=== PATIENT | female | born 1940 | race Caucasian/White ===

== ENCOUNTER 2018-09-27 11:59 | Emergency (ER) | payer MEDICARE ==
[~2018-09-27] VITALS: Ht 162.6 cm; Wt 66.7 kg
[~2018-09-27 11:59] MED LIST: AMLO5TAB4 PO; APIX5TAB PO; ASPI-989 PO; LISI-600 PO; METO50TA7 PO; NITR1PAT76 TD
[2018-09-27 12:00] VITALS: BP_SYST 162
--- NOTE | 2018-09-27 12:00 | NUR ---
BROUGHT BACK TO BED #3 AND TRIAGED, REPORT GIVEN TO MARSHAL
--- NOTE | 2018-09-27 12:05 | NUR ---
ER Dr. Hamilton at bedside examining patient.
--- NOTE | 2018-09-27 12:06 | NUR ---
Pt c/o 01/27 chest pain that radiates to back, started 4 days ago and "feels like a truck" is on her chest. Pt states she also has reflux and took 81 mg of aspirin this morning. No other complaints or injuries per pt or noted.
--- NOTE | 2018-09-27 12:10 | NUR ---
# 18 gauge angiocath placed to left AC. Use of asceptic technique. Opsite placed over site. Blood return noted. Blood for lab drawn from site. Flushed with 10 cc of normal saline. No evidence of infiltration noted. Patient tolerated well.
[2018-09-27] MEDS: ASPIRIN 81 MG TAB.CHEW PO ONE (12:25)
[2018-09-27 12:29] LABS: BASOPHILS # (AUTO) 0.1 K/uL (0.0-0.2); BASOPHILS % (AUTO) 1.2 % (0.0-2.0); EOSINOPHILS # (AUTO) 0.3 K/uL (0.0-0.4); EOSINOPHILS % (AUTO) 3.8 % (0.0-4.0); HEMATOCRIT 38.6 % (36-48); HEMOGLOBIN 12.9 g/dL (12.0-16.0); LYMPHOCYTES # (AUTO) 2.1 K/uL (1.0-5.5); MEAN CORPUSCULAR HEMOGLOBIN 29 pg (27-31); MEAN CORPUSCULAR HGB CONC 34 % (32-36); MEAN CORPUSCULAR VOLUME 87 fL (79.0-98.0); MONOCYTES # (AUTO) 0.7 K/uL (0.0-1.0); MONOCYTES % (AUTO) 9.7 % (1.7-9.3); NEUTROPHILS # (AUTO) 4.2 K/uL (1.8-7.7); NEUTROPHILS % (AUTO) 56.3 % (40.0-70.0); PLATELET COUNT (AUTO) 362 K/uL (130-430); RED BLOOD CELL COUNT(AUTO) 4.43 MIL/uL (4.2-6.2); RED CELL DISTRIBUTION WIDTH 15.1 % (9.0-15.0); WHITE BLOOD COUNT (AUTO) 7.4 K/uL (4.8-10.8)
[2018-09-27 12:41] LABS: ANION GAP 3 (5-15); CALCIUM 8.9 mg/dL (8.4-11.0); CHLORIDE 97 mmol/L (98-107); CREATININE 0.78 mg/dL (0.55-1.30); GLUCOSE 97 mg/dL (70-99); POTASSIUM 3.7 mmol/L (3.5-5.1); SODIUM SERUM 130 mmol/L (136-145); UREA NITROGEN, BLOOD 17 mg/dL (8-21)
[2018-09-27 12:45] LABS: INR 1.1 (0.8-1.2); PROTHROMBIN TIME 10.8 SECS (9.5-12.5)
[2018-09-27 12:46] LABS: ALANINE AMINOTRANSFERASE 43 U/L (12-78); ASPARTATE AMINOTRANSFERASE 29 U/L (10-37); LIPASE 120 U/L (73-393); TOTAL BILIRUBIN 0.6 mg/dL (0.0-1.0)
--- NOTE | 2018-09-27 13:48 | NUR ---
Pt states no pain right now but "discomfort" at 3/10. Pt also ambulate to bathroom and back to bed, no acute distress noted.
--- NOTE | 2018-09-27 14:00 | NUR ---
Pt and family member made aware of pending transfer to [facility]. Pt states no pain at this time.
--- NOTE | 2018-09-27 14:50 | NUR ---
Pt signed consent form for transfer. No other complaints at this time.
[2018-09-27] MEDS: ACETAMINOPHEN 500 MG TABLET PO ONE (15:18)
--- NOTE | 2018-09-27 15:22 | NUR ---
Pt c/o 5/[address] Hamilton made aware and ordered pain medication, pt states, "I don't want to take medication, it will upset my stomach." Pt was educated on risks and benefits of treatment and pain management. Pt states "I just want to go to [place], I would rather not take medications." Dr. Hamilton made aware of pt's statements.
[2018-09-27] MEDS ORDERED: PRAD75 PO (15:46)
[2018-09-27] MEDS ORDERED: HYDR25TA4 PO (15:46)
[2018-09-27] MEDS ORDERED: AMLO2.5T2 PO (15:46)
[2018-09-27] MEDS ORDERED: TEMA7.5C PO (15:46)
[2018-09-27] MEDS ORDERED: LIP10 PO (15:46)
--- NOTE | 2018-09-27 15:47 | NUR ---
Medication reconciliation completed with information provided by patient. Any prior medication reconciliation on file was reviewed and corrected.
--- NOTE | 2018-09-27 15:51 | NUR ---
TRANSFER INFO [facility] ACCEPTING: DR. MONSON REPORT #: ALS ETA [id number] SPOKE TO SAMUEL
--- NOTE | 2018-09-27 16:06 | NUR ---
Report given to Annette ELLIOTT at [facility] [phone]. Accepting physician is Dr. Allen. ETA approximately 1630 for pickup.
--- NOTE | 2018-09-27 16:30 | NUR ---
Patient to be transferred to [facility]. Is being transferred due to higher level of care. Receiving facility has accepting physician and available space. ER physician has signed transfer form. Patient or responsible libertarian has agreed to transfer and signed form. Patient belongings inventoried and sent with patient. Copy of nursing notes, lab reports, EKG, Physicians Orders and X-rays to be sent with patient. Report called to Annette ELLIOTT at receiving facility. Receiving physician is Dr. Allen. Ambulance service present for transfer.
[2018-09-27 16:31] VITALS: BP_SYST 138
== END 2018-09-27 16:30 | disposition short-term general hospital (02) ==
LOC: SED 11:59
DX: R07.89 Other chest pain (principal); I10 Essential (primary) hypertension; Z79.82 Long term (current) use of aspirin; Z79.899 Other long term (current) drug therapy
CPT/HCPCS: 36415; 71045; 80053; 82550-TC; 83690-TC; 84484; 85025; 85610-TC; 85730-TC; 93005; 99285